=== PATIENT | female | born 1975 | race Caucasian/White ===

== ENCOUNTER 2017-03-06 17:16 | Emergency (ER) | payer MEDICAID, OTHER ==
[~2017-03-06] VITALS: Ht 168934.2 cm; Wt 47.7 kg
[2017-03-06] MEDS ORDERED: AMOX500C2 PO (20:23)
[2017-03-06] MEDS: dexamethasone 4mg/ml inj IM SCH (20:36)
[2017-03-06 20:39] VITALS: BP 89/50
== END 2017-03-06 20:41 | disposition home or self-care (01) ==
LOC: ER 17:17
DX: J02.0 Streptococcal pharyngitis (principal)
CPT/HCPCS: 96372; 99283; J1100